=== PATIENT | male | born 1975 | race Two or more races ===

== ENCOUNTER 2018-05-09 17:53 | Emergency (ER) | payer SELFPAY ==
[~2018-05-09] VITALS: Ht 172.7 cm; Wt 81.6 kg
--- NOTE | 2018-05-09 19:15 | NUR ---
PT BIB SELF COMPLAINING OF ABDOMINAL PAIN THROUGHOUT ALL QUADRANTS SINCE YESTERDAY. PT STATES "I THINK I ATE SOMETHING BAD YESTERDAY." NON RADIATING 04/28 PAIN. NAUSEA PRESENT WITH NO VOMITING. NORMAL BOWEL MOVEMENTS. NO S/S SOB. NAD. VSS. AMBULATED TO HOSPITAL BED WITH STEADY GAIT. AWAITING MD [place]. ORDERS.
[2018-05-09 19:23] LABS: APPEARANCE,URINE Clear (CLEAR); BILIRUBIN,URINE Negative (NEGATIVE); BLOOD, URINE Negative Ery/uL (NEGATIVE); COLOR,URINE Light yellow (YELLOW); KETONES,URINE Negative (NEGATIVE); LEUKOCYTE ESTERASE ,URINE Negative (NEGATIVE); NITRITE, URINE Negative (NEGATIVE); PROTEIN,URINE Negative (NEGATIVE); UGLUCOSE Negative (NEGATIVE); UROBILINOGEN,URINE 0.2 EU/dL (0.2)
[2018-05-09] MEDS ORDERED: MORPHINE SULFATE INJ 4 MG/ML DISP.SYRIN ONE (19:27)
[2018-05-09 19:28] LABS: BASOPHILS # (AUTO) 0.1 /CMM (0.0-0.2); BASOPHILS % (AUTO) 0.7 % (0.0-2.0); EOSINOPHILS % (AUTO) 0.7 % (0.0-6.0); HEMATOCRIT 46 % (39-51); HEMOGLOBIN 16.2 g/dL (13.5-17.5); LYMPHOCYTES # (AUTO) 2.3 /CMM (0.8-4.8); LYMPHOCYTES % (AUTO) 24.6 % (20.0-44.0); MEAN CORPUSCULAR HEMOGLOBIN 34 PG (26.0-33.0); MEAN CORPUSCULAR HGB CONC 36 g/dl (31.0-36.0); MEAN CORPUSCULAR VOLUME 96 fL (80-96); MONOCYTES # (AUTO) 0.6 /CMM (0.1-1.30); MONOCYTES % (AUTO) 6.1 % (2.0-12.0); NEUTROPHILS # (AUTO) 6.1 /CMM (1.8-8.9); NEUTROPHILS % (AUTO) 67.9 % (43.0-81.0); PLATELET COUNT (AUTO) 239 /CMM (150-450); RED BLOOD CELL COUNT(AUTO) 4.74 MIL/uL (4.5-6.0); WHITE BLOOD COUNT (AUTO) 9.2 K/uL (4.3-11.0)
[2018-05-09] MEDS ORDERED: ONDANSETRON HCL/PF 4 MG/2 ML VIAL ONE (19:28)
[2018-05-09] MEDS ORDERED: ONDANSETRON HCL/PF 4 MG/2 ML VIAL IVP ONE (19:30)
[2018-05-09] MEDS ORDERED: MORPHINE SULFATE INJ 2 MG/ML DISP.SYRIN IV ONE (19:30)
[2018-05-09] MEDS ORDERED: IV NS 0.9% 1,000 ML BAG IV ONE (19:30)
[2018-05-09 19:38] LABS: CALCIUM, SERUM 9.4 mg/dL (8.5-10.1); CREATININE 1.2 mg/dL (0.6-1.3); POTASSIUM 3.9 mmol/L (3.5-5.1)
[2018-05-09 19:44] LABS: ALBUMIN 4.5 g/dL (3.4-5.0); BILIRUBIN,DIRECT 0.1 mg/dL (0.0-0.2); BILIRUBIN,TOTAL 0.2 mg/dL (0.2-1.0); TOTAL PROTEIN, SERUM 8.2 g/dL (6.4-8.2)
--- NOTE | 2018-05-09 20:15 | NUR ---
Patient is resting comfortably in bed. Easily aroused. VSS
[2018-05-09] MEDS ORDERED: IOHEXOL-300 100 ML VIAL IV ONE (20:30)
--- NOTE | 2018-05-09 20:33 | NUR ---
AMBULATED TO BATHROOM WITH STEADY GAIT. NAD
--- NOTE | 2018-05-09 20:49 | NUR ---
PT RETURNED FORM CT. NAD. VSS
--- NOTE | 2018-05-09 21:10 | NUR ---
ENDORSED TO RN HOV. PT STABLE CONDITION. VSS. NAD.
[2018-05-09 22:29] VITALS: BP 136/72
== END 2018-05-09 22:30 | disposition home or self-care (01) ==
LOC: ER 17:58
DX: R10.84 Generalized abdominal pain (principal)
CPT/HCPCS: 36415; 74177; 80048; 80076; 81001; 83690; 85025; 96374; 96375; 99285; A4606; J2270; J2405; J7030; Q9967; Z7610; 81000-TC